=== PATIENT | female | born 1960 | race Caucasian/White ===

== ENCOUNTER → 2021-07-27 | Day surgery (SDC) | payer OTHER ==
[~2021-07-27] MED LIST: CRESTOR10 MG PO; FENTANYL CITRATE/PF 100MCG/2 ML INJ ONE; GLIPIZIDE5 MG PO; HYDROCHLOROTHIA25 MG PO; LOSARTAN POTASS25 MG PO; METFORMIN HCL500 MG PO; MIDAZOLAM HCL 2 MG/2 ML VIAL ONE; OR PHACO EYE KIT ONE; OZEMPIC0.25 MG/0. SC; PAXIL20 MG PO; PREOP PHACO EYE KIT ONE; TALTZ SYRI80 MG/1 ML SC; TOPROL XL50 MG PO; TRAZODONE HCL50 MG PO
[2021-07-27 12:30] VITALS: BP 128/79
== END | disposition home or self-care (01) ==
LOC: OR 08:30 → EDBD 11:30
PROVIDERS: ATTEND Ophthalmology
DX: H25.12 Age-related nuclear cataract, left eye (principal); I10 Essential (primary) hypertension; E78.5 Hyperlipidemia, unspecified; E11.9 Type 2 diabetes mellitus without complications; M19.90 Unspecified osteoarthritis, unspecified site; L40.9 Psoriasis, unspecified; E66.9 Obesity, unspecified; F41.9 Anxiety disorder, unspecified; Z20.822 Contact with and (suspected) exposure to COVID-19; Z79.84 Long term (current) use of oral hypoglycemic drugs; Z79.899 Other long term (current) drug therapy; Z68.38 Body mass index [BMI] 38.0-38.9, adult
CPT/HCPCS: 36415; 66984; 82948; J2250; J3010; U0002; V2788